=== PATIENT | female | born 1985 | race Caucasian/White ===

== ENCOUNTER 2016-06-04 14:57 | Emergency (ER) | payer OTHER | END 2016-06-04 15:50 | disposition home or self-care (01) | LOC: FER 14:57 | DX: S40.861A Insect bite (nonvenomous) of right upper arm, initial encounter (principal); L03.123 Acute lymphangitis of right upper limb; F17.210 Nicotine dependence, cigarettes, uncomplicated | CPT/HCPCS: 99281 ==

== ENCOUNTER 2016-06-07 18:03 | Emergency (ER) | payer OTHER | END 2016-06-07 19:49 | disposition home or self-care (01) | LOC: FER 18:03 | DX: L03.113 Cellulitis of right upper limb (principal); N61.0 Mastitis without abscess; F17.210 Nicotine dependence, cigarettes, uncomplicated | CPT/HCPCS: 86403; 87070; 87077; 87186; 87205; 99283 ==